=== PATIENT | male | born 1970 | race Asian ===

== ENCOUNTER 2017-04-21 04:09 | Emergency (ER) | payer OTHER ==
--- NOTE | 2017-04-21 04:51 | ED ---
Ed Pugh SooYoung, scribed for Sergio Cantu MD on 04/21/17 at 0450 . Throat Pain/Nasal Congestion - HPI Summary HPI Summary: A 46 y/o M presents to ED with c/o sore throat onset two days ago. Associated sx : fever (maxT 103), chills, joint pain. Pt took Advil during the day which mildly helped. Pt is concerned he may have strep throat. - History of Current Complaint Chief Complaint: EDThroatPain Time Seen by Provider: 04/21/17 04:42 Hx Obtained From: Patient Onset/Duration: Lasting Days - two days, Still Present Severity: Moderate PMH/Surg Hx/FS Hx/Imm Hx Previously Healthy: No Opthamlomology History: Denies: Hx Legally Blind Neurological History: Denies: Hx Dementia Infectious Disease History: No Infectious Disease History: Denies: Traveled Outside the [place] in Last 30 Days - Family History Known Family History: Negative: Cardiac Disease, Hypertension, Diabetes - Social History Occupation: Employed Full-time Lives: With Family Review of Systems Positive: Fever, Chills Positive: Sore Throat Positive: Arthralgia All Other Systems Reviewed And Are Negative: Yes Physical Exam Triage Information Reviewed: Yes Vital Signs On Initial Exam: Initial Vitals Temp Pulse Resp BP Pulse Ox 100.4 F 99 18 119/57 97 04/21/17 04:17 04/21/17 04:17 04/21/17 04:17 04/21/17 04:17 04/21/17 04:17 Vital Signs Reviewed: Yes Appearance: Positive: Well-Appearing, No Pain Distress Skin: Positive: Warm Head/Face: Positive: Normal Head/Face Inspection Eyes: Positive: MARKUS ENT: Positive: Hearing grossly normal, Tonsillar exudate Neck: Positive: Supple Respiratory/Lung Sounds: Positive: Clear to Auscultation, Breath Sounds Present Cardiovascular: Positive: RRR Abdomen Description: Positive: Nontender, Soft Musculoskeletal: Positive: Strength/ROM Intact Neurological: Positive: Sensory/Motor Intact, Normal Gait Diagnostics - Vital Signs Vital Signs Temp Pulse Resp BP Pulse Ox 04/21/17 04:21 100.4 F 99 18 119/57 97 04/21/17 04:17 100.4 F 99 18 119/57 97 - Laboratory Lab Statement: Any lab studies that have been ordered have been reviewed, and results considered in the medical decision making process. EENT Course/Dx - Course Course Of Treatment: Pt is a 46 y/o M presenting with sore throat, fever, chills , joint pain onset two days ago. Strep test is positive. Will D/C home with penicillin. - Diagnoses Provider Diagnoses: Strep throat Discharge - Discharge Plan Condition: Stable Disposition: HOME Prescriptions: Penicillin VK TAB* [Penicillin VK 250 mg Tab*] 250 mg PO QID #30 tab Patient Education Materials: Penicillin V (By mouth), Strep Throat (ED) Referrals: Airam Childress MD [Primary Care Provider] - Additional Instructions: Please return to the ED if you experience new or worsening symptoms. The documentation as recorded by the Ed diop SooYoung accurately reflects the service I personally performed and the decisions made by me, Sergio Cantu MD.
[2017-04-21] MEDS ORDERED: Penicillin VK TAB* 250 MG PO ONE (05:25)
[2017-04-21 05:45] VITALS: BP 118/68
== END 2017-04-21 05:46 | disposition home or self-care (01) ==
LOC: ED 04:09
DX: J02.0 Streptococcal pharyngitis (principal); J02.9 Acute pharyngitis, unspecified; R50.9 Fever, unspecified
CPT/HCPCS: 87651; 99282